=== PATIENT | female | born 1980 | race Caucasian/White ===

== ENCOUNTER 2017-07-16 20:58 | Emergency (ER) | payer BC ==
[~2017-07-16] VITALS: Ht 167.6 cm; Wt 109.3 kg
[~2017-07-16 20:58] MED LIST: AMOX-559 PO; CLON0.5T66 PO; DESV50TA9 PO; HYDR-4225 PO; HYDR-4309 PO; IBUP800T37 PO; KET10 PO; LOR5/325 PO; ONDA4TAB PO; ONDA4TAB9 PO; OXYC-373 PO; OXYC-865 PO; PANT40TA63 PO; PRESTIQUE PO; ROBC PO; SULF-198 PO; TRAM-420 PO; TRAM-627 PO; VENL150C61 PO; ZOLP-350 PO
--- NOTE | 2017-07-16 21:05 | ER Report ---
History and Physical Time Seen By : 21:01 HPI/ROS CHIEF COMPLAINT: Persisting cough HISTORY OF PRESENT ILLNESS: 37-year-old female presents ambulatory to the ER. She's been sick with URI symptoms for 1 week. She notes a productive cough of clear to yellow sputum. She's had intermittent fevers until yesterday. She denies exposure to ill contacts. She denies high fevers. She notes that her chest feels tight. She's been coughing all night long the been unable to sleep. She feels very run down. She denies a history of asthma, smoking or allergies. She denies history of cardiac disease or associated cardiac symptoms with her current presentation. REVIEW OF SYSTEMS: Respiratory: As above Cardiovascular: As above Gastrointestinal: No vomiting, no abdominal pain. Musculoskeletal: No back pain. Allergies: Coded Allergies: No Known Drug Allergies (Verified , 07/16/17) Uncoded Allergies: COFFEE PATEL (Allergy, Mild, sore throat, red face, 08/05/13) Home Meds Active Scripts Cefuroxime Axetil (CEFUROXIME) 250 Mg Tablet, 250 MG PO BID for infection, #14 TAB Prov:MAHSA TYLER DO 07/16/17 Promethazine Hcl (PROMETHAZINE HCL) 25 Mg Tablet, 25 MG PO Q4H Y for try up cough or stop nausea, #14 TAB Prov:MAHSA TYLER DO 07/16/17 Oxycodone Hcl/Acetaminophen (PERCOCET 5-325 MG TABLET) 1 Each Tablet, 1 EACH PO Q4-6H Y for cough or pain. Suppression, #12 Prov:MAHSA TYLER DO 07/16/17 Reported Medications Desvenlafaxine Succinate (PRISTIQ ER) 50 Mg Tab.er.24h, 50 MG PO DAILY 08/05/16 Discontinued Reported Medications Zolpidem Tartrate (AMBIEN) 10 Mg Tablet, 1 TAB PO QHS TAKE ONE TABLET BY MOUTH AT BED TIME 08/05/13 Discontinued Scripts Hydrocodone Bit/Acetaminophen (NORCO 5-325 TABLET) 1 Each Tablet, 1-2 EACH PO Q4H Y for PAIN, #30 TAB Prov:WES WILKINSON MD 04/03/17 Ketorolac Tromethamine (KETOROLAC TROMETHAMINE) 10 Mg Tab, 10 MG PO Q6H, #20 TAB Prov:WES WILKINSON MD 04/03/17 Past Medical/Surgical History Unremarkable Reviewed Nurses Notes: Yes Old Medical Records Reviewed: Yes Hx Smoking: No Smoking Status: Never Smoker Exposure to Second Hand Smoke?: No Hx Substance Use Disorder: No Hx Alcohol Use: No Constitutional Vital Sign - Last 24 Hours 07/16/17 07/16/17 21:01 21:47 Temp 98.8 Pulse 96 104 Resp 20 18 B/P (MAP) 144/89 138/97 (111) Pulse Ox 91 92 O2 Delivery Room Air Physical Exam Vital signs stable, afebrile, pulse ox normal General Appearance: The patient is alert, has no immediate need for airway protection and no current signs of toxicity. Moderate distress, slightly pale appearing, skin warm and dry HEENT: Pupils equal and round no injection. TMs normal, oropharynx with mild erythema, no exudate or petechiae, no tonsillar hypertrophy Respiratory: Chest is non tender, lungs are clear to auscultation. Faint Leroy , wheezing, no Rales Cardiac: regular rate and rhythm Gastrointestinal: Abdomen is soft and non tender, no masses, bowel sounds normal. Musculoskeletal: Neck: Neck is supple and non tender. No lymphadenopathy Extremities have full range of motion and are non tender. No edema, no calf tenderness Skin: No rashes or lesions. DIFFERENTIAL DIAGNOSIS: After history and physical exam differential diagnosis was considered for bronchitis, pneumonia, asthma exacerbation, influenza, sinus infection, pharyngitis, bronchospasm. Medical Decision Making ED Course/Re-evaluation ED Course Patient was admitted to an examination room. H&P was done. The differential diagnoses was considered. On clinical examination. Patient has a persistent cough and coughing fits throughout the examination. Vital signs remained stable. Her pulse ox does not drop. Patient has clear lung carr on examination except for expiratory wheezing. She's having bronchospasm. She is treated with albuterol minimizer treatment. She is dispensed an albuterol inhaler. Patient be covered with Ceftin antibiotic. She'll be given a single dose of Decadron 8 mg reduce her lung inflammation. He is given Phenergan and Percocet to suppress her cough to allow her to sleep for the next few days. Patient advised to follow-up with primary care if unimproved in 3-5 days. Decision to Disposition Date: Jul 16, 2017 Decision to Disposition Time: 21:16 Depart Departure Latest Vital Signs Vital Signs Date Time Temp Pulse Resp B/P (MAP) Pulse Ox O2 Delivery O2 Flow Rate FiO2 07/16/17 21:47 104 18 138/97 (111) 92 Room Air 07/16/17 21:01 98.8 Impression: Primary Impression: Upper respiratory infection Additional Impression: Persistent cough Condition: Improved Disposition: HOME OR SELF-CARE Referrals: ANNE-MARIE TAMP (PCP) New Scripts Cefuroxime Axetil (CEFUROXIME) 250 Mg Tablet 250 MG PO BID for infection, #14 TAB Prov: MAHSA TYLER DO 07/16/17 Promethazine Hcl (PROMETHAZINE HCL) 25 Mg Tablet 25 MG PO Q4H Y for try up cough or stop nausea, #14 TAB Prov: MAHSA TYLER DO 07/16/17 Oxycodone Hcl/Acetaminophen (PERCOCET 5-325 MG TABLET) 1 Each Tablet 1 EACH PO Q4-6H Y for cough or pain. Suppression, #12 Prov: MAHSA TYLER DO 07/16/17 Patient Instructions: Upper Respiratory Infection (ED) Additional Instructions: Take ibuprofen 200 mg 3 tablets 3 times a day with food Use DayQuil morning and afternoon and NyQuil at bedtime Do not take any extra Tylenol since there is Tylenol and DayQuil and in the Percocet Take Percocet and Phenergan together to suppress cough. They can make him very drowsy, so avoid taking them. If you're going to be driving or out, performing activities Follow-up with your primary care if unimproved in 3-5 days Problem Qualifiers Primary Impression: Upper respiratory infection URI type: unspecified URI Qualified Codes: J06.9 - Acute upper respiratory infection, unspecified MAHSA TYLER DO Jul 16, 2017 21:05
[2017-07-16] MEDS ORDERED: oxyCODONE/ACETAMIN 5/325MG TH 2 TAB/BOTTLE PO ONE (21:15)
[2017-07-16] MEDS ORDERED: CEFDINIR 300 MG CAP PO ONE (21:15)
[2017-07-16] MEDS ORDERED: ALBUTEROL 2.5 MG/3 ML NEB NEB ONE (21:15)
[2017-07-16] MEDS ORDERED: PROMETHAZINE HCL 25 MG TAB TH 2 TAB/BOTTLE PO ONE (21:15)
[2017-07-16] MEDS ORDERED: DEXAMETHASONE 4 MG TAB PO ONE (21:15)
[2017-07-16] MEDS ORDERED: ALBUTEROL SULFATE 90 MCG/ACT 8.5 GM HNH INH PRN (21:15)
[2017-07-16] MEDS ORDERED: CEFU250T11 PO (21:19)
[2017-07-16] MEDS ORDERED: PROM-110 PO (21:19)
[2017-07-16] MEDS ORDERED: OXYC-865 PO (21:19)
[2017-07-16 21:47] VITALS: BP 138/97
== END 2017-07-16 21:48 | disposition home or self-care (01) ==
LOC: ER 21:18
DX: J06.9 Acute upper respiratory infection, unspecified (principal)
CPT/HCPCS: 94640; 99283; J7613; J8540

== ENCOUNTER 2017-11-04 17:29 | Emergency (ER) | payer BC ==
[~2017-11-04 17:29] MED LIST changes: +CEFU250T11 PO; +PROM-110 PO
[2017-11-04] MEDS ORDERED: ZOLP-350 PO (17:36)
--- NOTE | 2017-11-04 17:40 | ER Report ---
History and Physical Time Seen By MD: 17:40 Hx. 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 Patient states that she's had the pain started approximately 3:15. She states that she is trying to get her a leaf blower started. She states she was bending over pulling on the cord to get that started. She states that she follow-up in a couple times a day well and then started having back pain. She states she initially tried to get to the emergency room approximately 3:45, however the pain was too bad. States she has been icing her back, 20 minutes on and then 20 minutes off. Patient states that the pain finally got to be a more manageable level. She states she's had problems with back pain in the past, she's never had to have surgery. Patient states she is not taking any medication for this. REVIEW OF SYSTEMS: Respiratory: No cough, no dyspnea. Cardiovascular: No chest pain, no palpitations. Gastrointestinal: No vomiting, no abdominal pain. Musculoskeletal: As noted above Allergies: Coded Allergies: No Known Drug Allergies (Verified , 11/04/17) Uncoded Allergies: COFFEE PATEL (Allergy, Mild, sore throat, red face, 08/05/13) Home Meds Active Scripts Cyclobenzaprine Hcl (CYCLOBENZAPRINE HCL) 10 Mg Tablet, 10 MG PO TID Y for MUSCLE SPASMS, #21 TAB Prov:BRIAN ARREAGA [facility] 11/04/17 Reported Medications Zolpidem Tartrate (AMBIEN) 10 Mg Tablet, 1 TAB PO QHS, TAB 11/04/17 Desvenlafaxine Succinate (PRISTIQ ER) 50 Mg Tab.er.24h, 50 MG PO DAILY 08/05/16 Discontinued Scripts Cefuroxime Axetil (CEFUROXIME) 250 Mg Tablet, 250 MG PO BID for infection, #14 TAB Prov:MAHSA TYLER DO 07/16/17 Promethazine Hcl (PROMETHAZINE HCL) 25 Mg Tablet, 25 MG PO Q4H Y for try up cough or stop nausea, #14 TAB Prov:MAHSA TYLER DO 07/16/17 Oxycodone Hcl/Acetaminophen (PERCOCET 5-325 MG TABLET) 1 Each Tablet, 1 EACH PO Q4-6H Y for cough or pain. Suppression, #12 Prov:MAHSA TYLER DO 07/16/17 Past Medical/Surgical History Patient has a past medical history of migraines, heart murmur, pneumonia, cholecystitis, tendon tear, fracture to hand, wrist, ankle, foot, fingers, depression. Patient has surgical history of tonsillectomy, left ankle tendon repair, fallopian tube removed. Patient has a family medical history of diabetes, cancer. Reviewed Nurses Notes: Yes Hx Smoking: No Smoking Status: Never Smoker Exposure to Second Hand Smoke?: No Hx Substance Use Disorder: No Hx Alcohol Use: No Constitutional Vital Sign - Last 24 Hours 11/04/17 11/04/17 17:30 18:40 Temp 98.2 Pulse 87 83 Resp 16 B/P (MAP) 116/74 116/76 (89) Pulse Ox 94 92 O2 Delivery Room Air Room Air Physical Exam General Appearance: The patient is alert, has no immediate need for airway protection and no current signs of toxicity. ENT: Tympanic membranes are pearly-pace, auditory canals are patent, mucous membranes are moist. Respiratory: Chest is non tender, lungs are clear to auscultation. Cardiac: regular rate and rhythm Gastrointestinal: Abdomen is soft and non tender, no masses, bowel sounds normal. Musculoskeletal: Neck: Neck is supple and non tender. Extremities have full range of motion and are non tender. Back: Patient has tenderness to bilateral paraspinous muscles, no bruising noted. Skin: No rashes or lesions. DIFFERENTIAL DIAGNOSIS: After history and physical exam differential diagnosis was considered for back strain, contusion, back pain Medical Decision Making EKG/Imaging Imaging Examination: LUMBAR SPINE 4 VIEWS Comparison: None. History: Lower back pain. Findings: 5 lumbar type vertebral bodies. Vertebral body height and alignment is within normal limits. Thoracolumbar, facet, lumbosacral, and sacroiliac alignment is maintained. L4-L5 and L5-S1 mild degenerative disc space loss. No prevertebral soft tissue abnormality. Cholecystectomy clips. IMPRESSION: 1. No lumbar vertebral body height loss or malalignment. 2. L4-L5 and L5-S1 mild degenerative disc disease. Report Dictated By: Chaz Pedro MD at 11/04/2017 6:24 PM Report E-Signed By: Chaz Pedro MD at 11/04/2017 6:25 PM ED Course/Re-evaluation ED Course Patient was admitted to examine, history and physical were obtained. Differential diagnoses were considered. Examination patient did have bilateral tenderness in the paraspinous muscles. There is no bruising noted. X-rays done of the lumbar spine which showed some mild degenerative disc disease, but no acute fractures or subluxation. Patient did receive a I am injection of Norflex. I discussed the findings with the patient. We will go ahead and discharge her home. She is to limit her activity by pain. She is follow-up with her primary care provider in the next week. She is to return to the emergency room condition worsens. Patient verbalized understanding and agreement with plan. Decision to Disposition Date: November 04, 2017 Decision to Disposition Time: 18:37 Depart Departure Latest Vital Signs Vital Signs Date Time Temp Pulse Resp B/P (MAP) Pulse Ox O2 Delivery O2 Flow Rate FiO2 11/04/17 18:40 83 116/76 (89) 92 Room Air 11/04/17 17:30 98.2 16 Impression: Primary Impression: Back pain Condition: Improved Disposition: HOME OR SELF-CARE Referrals: ANNE-MARIE TAM (PCP) New Scripts Cyclobenzaprine Hcl (CYCLOBENZAPRINE HCL) 10 Mg Tablet 10 MG PO TID Y for MUSCLE SPASMS, #21 TAB Prov: BRIAN ARREAGA 11/04/17 Patient Instructions: Acute Low Back Pain (ED) Additional Instructions: Limit activity by pain. Alternate ice and heat to the back. Get plenty of rest. Take Tylenol or Ibuprofen as needed for pain. No heavy lifting. Increase low impact aerobic activity; ie walking. Problem Qualifiers Primary Impression: Back pain Back pain location: low back pain Chronicity: acute Back pain laterality: bilateral Sciatica presence: without sciatica Qualified Codes: M54.5 - Low back pain BRIAN ARREAGA November 04, 2017 17:40
[2017-11-04] MEDS ORDERED: ORPHENADRINE 60MG/2ML INJ IM ONE (17:55)
[2017-11-04] MEDS: KETOROLAC 60 MG/2 ML VIAL IM ONE ×2 (17:55→18:21)
--- NOTE | 2017-11-04 18:28 | RADIOLOGY IMAGING REPORT ---
FACILITY: [facility] PATIENT NAME: Jenifer Burnham : 1980 MR: [id number] V: [id number] EXAM DATE: ORDERING PHYSICIAN: BRIAN ARREAGA TECHNOLOGIST: Location: [facility] Patient: Jenifer Burnham : 1980 Visit/Account:[id number] Date of Sevice: 11/04/2017 Examination: LUMBAR SPINE 4 VIEWS Comparison: None. History: Lower back pain. Findings: 5 lumbar type vertebral bodies. Vertebral body height and alignment is within normal limits . Thoracolumbar, facet, lumbosacral, and sacroiliac alignment is maintained. L4-L5 and L5-S1 mild deg enerative disc space loss. No prevertebral soft tissue abnormality. Cholecystectomy clips. IMPRESSION: 1. No lumbar vertebral body height loss or malalignment. 2. L4-L5 and L5-S1 mild degenerative disc disease. Report Dictated By: Chaz Pedro MD at 11/04/2017 6:24 PM Report E-Signed By: Chaz Pedro MD at 11/04/2017 6:25 PM WSN:[id number]
[2017-11-04] MEDS ORDERED: CYCL10TA29 PO (18:39)
[2017-11-04 18:40] VITALS: BP 116/76
[2017-11-04] MEDS ORDERED: CYCLOBENZAPRINE HCL 10 MG TH PO ONE (18:40)
== END 2017-11-04 18:48 | disposition home or self-care (01) ==
LOC: ER 17:37
DX: M54.5 Low back pain (principal)
CPT/HCPCS: 72120; 96372; 99283; J2360; J1885

== ENCOUNTER → 2018-11-05 | Outpatient (CLI) | payer BC ==
[~2018-11-05] MED LIST changes: +CYCL10TA29 PO; -HYDR-4309 PO; +HYDR-653 PO
[2018-11-05 13:28] LABS: PLATELET COUNT, AUTOMATED 343 K/uL (150-450)
--- NOTE | 2018-11-05 14:39 | RADIOLOGY IMAGING REPORT ---
FACILITY: [facility] PATIENT NAME: Jenifer Burnham : 1980 MR: [id number] V: [id number] EXAM DATE: ORDERING PHYSICIAN: ANNE-MARIE TAM [place]CHN[place] [facility] [place] Jenifer u[place]ham : 1980 Visit/Account:[id number] Date of Sevice: 11/05/2018 Transvaginal and transabdominal pelvic ultrasound. Transabdominal imaging performed for better evalu ation of the ovaries INDICATION: Right lower quadrant pain x1 day. COMPARISON: None Available FINDINGS: Uterus measures 7.6 x 3.5 x 4.6 cm. Double wall endometrial stripe measures 5 mm. There is no free fluid in the cul-de-sac. Urinary bladder is distended. Pelvic vessels appear unremarkable on this examination. Right ovary measures 4.8 x 3.4 x 3.9 cm and shows normal blood flow and contains a small hemorrhagic cyst measuring up to 3.5 cm. Left ovary measures 2.4 x 1.5 x 2.1 cm and shows normal blood flow and contains several small follicl es. IMPRESSION: 1. No acute findings. 2. Hemorrhagic cyst within the right ovary measuring up to 3.5 cm. Report Dictated By: Gage Gaspar MD at 11/05/2018 2:31 PM Report E-Signed By: Gage Gaspar MD at 11/05/2018 2:35 PM WSN:[email or web address]
== END ==
LOC: LAB 13:07
PROVIDERS: ATTEND Nurse Practitioner Family
DX: N83.291 Other ovarian cyst, right side (principal)
CPT/HCPCS: 36415; 76856; 81001; 85025